=== PATIENT | female | born 1940 | race Hispanic/Latino ===

== ENCOUNTER 2020-05-23 11:09 | Outpatient (CLI) | payer OTHER | END 2020-05-23 22:59 | disposition home or self-care (01) | LOC: INF 11:09 | PROVIDERS: ATTEND Internal Medicine Endocrinology, Diabetes & Metabolism | DX: Z23 Encounter for immunization (principal) | CPT/HCPCS: 96372 ==

== ENCOUNTER 2020-06-20 09:40 | Outpatient (CLI) | payer OTHER | END 2020-06-20 19:17 | disposition home or self-care (01) | LOC: INF 09:40 | PROVIDERS: ATTEND Internal Medicine | DX: Z23 Encounter for immunization (principal) | CPT/HCPCS: 96372 ==